=== PATIENT | female | born 1950 | race African-American/Black ===

== ENCOUNTER → 2017-02-16 | Outpatient (CLI) | payer OTHER | LOC: RAD 06:23 | DX: Z12.31 Encounter for screening mammogram for malignant neoplasm of breast (principal) ==

== ENCOUNTER → 2018-04-08 | Outpatient (CLI) | payer OTHER | LOC: RAD 02:29 | DX: Z12.31 Encounter for screening mammogram for malignant neoplasm of breast (principal) ==